=== PATIENT | female | born 1980 | race Caucasian/White ===

== ENCOUNTER 2018-05-23 04:58 | Day surgery (SDC) | payer OTHER ==
[~2018-05-23 04:58] MED LIST: VITAMIN D400 UNI2 PO
== END 2018-05-23 10:40 | disposition home or self-care (01) ==
LOC: CIR.AMB 04:58
DX: D17.1 Benign lipomatous neoplasm of skin and subcutaneous tissue of trunk (principal)

== ENCOUNTER 2018-11-23 09:34 | Emergency (ER) | payer OTHER ==
[~2018-11-23] VITALS: Ht 157.5 cm; Wt 55.8 kg
== END 2018-11-23 15:00 | disposition home or self-care (01) ==
LOC: ER 09:34
DX: S39.012A Strain of muscle, fascia and tendon of lower back, initial encounter (principal); X50.0XXA Overexertion from strenuous movement or load, initial encounter; Y93.89 Activity, other specified; Y92.89 Other specified places as the place of occurrence of the external cause; Y99.8 Other external cause status